=== PATIENT | female | born 1995 | race Caucasian/White ===

== ENCOUNTER → 2017-01-19 | Outpatient (CLI) | payer OTHER ==
--- NOTE | 2017-01-19 08:18 | REP ---
Abdominal upper quadrant ultrasound for elevated liver function tests: There is no cholelithiasis, gallbladder wall thickening or pericholecystic fluid. There is no intrahepatic or extrahepatic biliary duct dilatation, the common duct measures 3.6 mm in diameter. The hepatic parenchyma is mildly hyperechoic compatible with hepato steatosis. There is no hepatic mass. The visualized portion of the pancreatic head is unremarkable. The body and tail are obscured by bowel gas. There is no right renal hydronephrosis, calculus, mass or cyst. Right kidney is normal size measuring 12.0 cm craniocaudad length. There is no right upper quadrant abdominal ascites. Impression: Essentially negative abdominal right upper quadrant ultrasound except for hepato steatosis. Signed by Calderon Farias MD 01/19/2017 08:10 A
== END ==
LOC: M RAD 06:49
PROVIDERS: ATTEND Internal Medicine Gastroenterology
DX: R94.5 Abnormal results of liver function studies (principal)

== ENCOUNTER → 2017-02-16 | Outpatient (CLI) | payer OTHER ==
[2017-02-16 15:57] LABS: ALBUMIN 3.9 GM/DL (3.2-5.2); ALBUMIN/GLOBULIN RATIO 0.98 (1.00-1.93); ALKALINE PHOSPHATASE 79 U/L (45-117); ALT/SGPT 627 U/L (12-78); AST/SGOT 237 U/L (7-37); BILIRUBIN,DIRECT 0.1 MG/DL (0.0-0.2); BILIRUBIN,TOTAL 0.5 MG/DL (0.2-1.0); FERRITIN 503 NG/ML (8-252); IRON (FE) 119 UG/DL (50-170); PERCENT SATURATION 28.5 % (13.2-45.0); TOTAL IRON BINDING CAPACITY 418 UG/DL (250-450); TOTAL PROTEIN 7.9 GM/DL (6.4-8.2)
[2017-02-16 17:02] LABS: HEPATITIS B SURFACE ANTIBODY POSITIVE (POSITIVE)
[2017-02-22 00:06] LABS: EBV PCR QUAL WHOLE BLD Positive (Negative)
[2017-02-22 00:06] LABS: HEPATITIS A IgG TOTAL Positive (Negative); HEPATITIS E IgM ANTIBODY Positive (Negative); HERPES ZOSTER, VARICELLA IgM <0.91 index (0.00-0.90); HSV-1 DNA Negative (Negative); HSV-2 DNA Negative (Negative)
== END ==
LOC: M LAB 13:54
DX: R94.5 Abnormal results of liver function studies (principal)

== ENCOUNTER → 2017-03-16 | Outpatient (CLI) | payer OTHER ==
[2017-03-16 19:32] LABS: ALBUMIN 4.2 GM/DL (3.2-5.2); ALBUMIN/GLOBULIN RATIO 1.11 (1.00-1.93); ALKALINE PHOSPHATASE 105 U/L (45-117); ALT/SGPT 496 U/L (12-78); AST/SGOT 259 U/L (7-37); BILIRUBIN,DIRECT 0.1 MG/DL (0.0-0.2); BILIRUBIN,TOTAL 0.4 MG/DL (0.2-1.0)
== END ==
LOC: M LAB 18:11
DX: R93.3 Abnormal findings on diagnostic imaging of other parts of digestive tract (principal)
CPT/HCPCS: 80076

== ENCOUNTER → 2017-05-23 | Outpatient (CLI) | payer OTHER ==
[2017-05-23 16:06] LABS: BASO % 0.3 % (0.0-1.0); EOS # 0.1 10^3/uL (0.0-0.50); EOS % 0.8 % (0.0-3.0); HEMATOCRIT 43.3 % (36.0-47.0); HEMOGLOBIN 15.1 g/dl (12.0-15.5); IMMATURE GRANULOCYTE % 0.3 % (0-3.0); LYMPH # 2.9 10^3/uL (1.5-6.5); LYMPH % 38.2 % (24.0-44.0); MEAN CORPUSCULAR HEMOGLOBIN 29.4 pg (27.0-33.0); MEAN CORPUSCULAR HGB CONC 34.9 g/dl (32.0-36.5); MEAN CORPUSCULAR VOLUME 84.2 fl (80.0-96.0); MONO # 0.6 10^3/uL (0.0-0.8); MONO % 7.4 % (0.0-5.0); PLATELET COUNT, AUTOMATED 290 10^3/uL (150-450); RED BLOOD COUNT 5.14 10^6/uL (4.00-5.40); RED CELL DISTRIBUTION WIDTH 13.3 % (11.5-14.5); WHITE BLOOD COUNT 7.6 10^3/uL (4.0-10.0)
[2017-05-23 16:36] LABS: ALBUMIN 4.2 GM/DL (3.2-5.2); ALBUMIN/GLOBULIN RATIO 1.02 (1.00-1.93); ALKALINE PHOSPHATASE 110 U/L (45-117); ALT/SGPT 324 U/L (12-78); AST/SGOT 131 U/L (7-37); BILIRUBIN,DIRECT 0.1 MG/DL (0.0-0.2); BILIRUBIN,TOTAL 0.4 MG/DL (0.2-1.0); TOTAL PROTEIN 8.3 GM/DL (6.4-8.2)
== END ==
LOC: M LAB 15:29
DX: R94.5 Abnormal results of liver function studies (principal)

== ENCOUNTER → 2017-08-16 | Outpatient (CLI) | payer OTHER ==
[2017-08-16 15:36] LABS: ALBUMIN 4.1 GM/DL (3.2-5.2); ALKALINE PHOSPHATASE 99 U/L (45-117); ALT/SGPT 491 U/L (12-78); AST/SGOT 335 U/L (7-37); BILIRUBIN,DIRECT 0.1 MG/DL (0.0-0.2); BILIRUBIN,TOTAL 0.4 MG/DL (0.2-1.0); CHOLESTEROL LEVEL 258 MG/DL (<200); CHOLESTEROL RISK RATIO 6.615 (<5); GAMMA GLUTAMYLTRANSPEPTIDASE 172 U/L (5-55); HDL CHOLESTEROL 39 MG/DL (>40); LDH LACTATE DEHYDROGENASE 350 U/L (84-246); LDL CHOLESTEROL 174.6 MG/DL (<100); NON-HDL-C 219 MG/DL; TOTAL PROTEIN 8.2 GM/DL (6.4-8.2); TRIGLYCERIDES LEVEL 222 MG/DL (<150)
== END ==
LOC: M LAB 14:45
DX: B17.2 Acute hepatitis E (principal)
CPT/HCPCS: 82977

== ENCOUNTER 2017-10-24 14:00 | Outpatient (RCR) | payer OTHER | END 2017-11-04 | LOC: M OUTALCOH 14:00 | DX: F10.10 Alcohol abuse, uncomplicated (principal) ==

== ENCOUNTER 2017-11-07 15:05 | Outpatient (RCR) | payer OTHER | END 2017-12-05 | LOC: M OUTALCOH 15:05 | DX: F10.10 Alcohol abuse, uncomplicated (principal) ==